=== PATIENT | female | born 1945 | race Caucasian/White ===

== ENCOUNTER 2019-07-12 05:37 | Outpatient (RCR) | payer MEDICARE, OTHER, SELFPAY | END 2019-07-12 12:00 | disposition home or self-care (01) | LOC: ONCRAD 05:37 | PROVIDERS: Family Provider Nurse Practitioner; PCP Nurse Practitioner; Visit Provider Radiology Radiation Oncology | DX: Z51.0 Encounter for antineoplastic radiation therapy (principal); C01 Malignant neoplasm of base of tongue; L58.0 Acute radiodermatitis; Y84.2 Radiological procedure and radiotherapy as the cause of abnormal reaction of the patient, or of later complication, without mention of misadventure at the time of the procedure | CPT/HCPCS: 77386; J2930; Q9967 ==

== ENCOUNTER 2019-08-02 05:55 | Outpatient (RCR) | payer MEDICARE, OTHER, SELFPAY | END 2019-08-04 00:01 | LOC: ONCRAD 05:55 | PROVIDERS: Family Provider Nurse Practitioner; PCP Nurse Practitioner; Visit Provider Specialist | DX: Z51.0 Encounter for antineoplastic radiation therapy (principal); C01 Malignant neoplasm of base of tongue; J02.9 Acute pharyngitis, unspecified; L58.0 Acute radiodermatitis; E86.0 Dehydration; Y84.2 Radiological procedure and radiotherapy as the cause of abnormal reaction of the patient, or of later complication, without mention of misadventure at the time of the procedure; R87.810 Cervical high risk human papillomavirus (HPV) DNA test positive; I69.398 Other sequelae of cerebral infarction; Z99.3 Dependence on wheelchair; Z92.21 Personal history of antineoplastic chemotherapy; Z79.899 Other long term (current) drug therapy | CPT/HCPCS: 36415; 36591; 77280 ×2; 77300; 77336 ×2; 77338; 77386 ×10; 80053 ×3; 80061; 82306; 85025 ×3; 96360 ×7; 96361 ×4; 96374 ×4; 99214 ×2; C9113 ×4; J1642 ×12; J7040 ×10 ==